=== PATIENT | female | born 1995 | race Hispanic/Latino ===

== ENCOUNTER 2024-06-01 14:58 | Emergency (ER) | payer OTHER ==
[2024-06-01 15:36] LABS: Absolute Monocytes 0.5 K/uL (0.1-1.3); Basophils % 0.2 % (0-1.3); Eosinophils % 0.2 % (0-4.4); Hematocrit 40.7 % (36.0-45.0); Hemoglobin 13.1 g/dL (12.0-15.0); Lymphocytes % 11.6 % (15.3-44.8); MCH 25.9 pg (27.0-35.0); MCHC 32.2 g/dL (32.0-36.0); MCV 80.5 fL (80-100); MPV 7.5 fL (7.6-11.3); Monocytes % 6.3 % (3.3-12.3); Neutrophils % 81.7 % (41.7-73.7); Platelets 259 thou/uL (152-406); RBC Red Blood Cell Count 5.06 M/uL (3.86-4.86); Red Cell Distribution Width 14.3 % (12.1-15.2)
[2024-06-01] MEDS ORDERED: METHYLPREDNISOLONE 125 MG INJ ONE (15:51)
[2024-06-01] MEDS ORDERED: LEVALBUTEROL 1.25 MG/3 ML NEB ONE (15:51)
[2024-06-01] MEDS ORDERED: IPRATROPIUM BROM 0.5MG/2.5ML ONE (15:51)
[2024-06-01] MEDS ORDERED: CEFTRIAXONE 1000 MG/VIAL ONE (15:51)
[2024-06-01] MEDS ORDERED: NA CHLORIDE 0.9% 2,000 ML ONE (15:52)
[2024-06-01] MEDS ORDERED: AZITHROMYCIN 250 MG TAB ONE (15:52)
--- NOTE | 2024-06-01 16:02 | RAD REPORT ---
EXAM: Chest Pa And Lat (2 Views) HISTORY: COUGH COMPARISON: None. FINDINGS: LUNGS/PLEURA: The lungs are clear. No pleural effusions or pneumothorax. No pulmonary edema. MEDIASTINUM: The mediastinal silhouette is within normal limits. CARDIAC: The cardiac silhouette is within normal limits. UPPER ABDOMEN: No significant abnormality. BONES: No acute fracture. LINES/TUBES/OTHER: N/A IMPRESSION: No evidence of acute cardiopulmonary disease.
[2024-06-01 16:08] LABS: Albumin 3.3 g/dL (3.4-5.0); Albumin/Globulin Ratio 0.8 (1.1-1.8); Anion Gap 10.6 mEq/L (5.0-15.0); Bilirubin Total 0.5 mg/dL (0.2-1.0); Globulin 4.1 g/dL (2.3-3.5); Potassium 3.6 mEq/L (3.5-5.1); Protein, Total 7.4 g/dL (6.4-8.2); Troponin High Sensitivity 3.5 pg/mL (<58.9)
[2024-06-01 16:20] LABS: SARS-CoV-2 Antigen CONTROL BLUE LINE VIS/BG OK; SARS-CoV-2 Antigen Rapid Res Negative (Negative)
[2024-06-01] MEDS ORDERED: ONDANSETRON 4 MG/2 ML VIAL ONE (16:31)
[2024-06-01] MEDS ORDERED: FENTANYL CITR 100 MCG/2 ML ONE (16:32)
[2024-06-01] MEDS ORDERED: FAMOTIDINE 20 MG/2 ML VIAL IV ONE (16:32)
--- NOTE | 2024-06-01 16:56 | RAD REPORT ---
Abdomen Exam Limited: 06/01/2024 4:27 PM CLINICAL HISTORY: ABD PAIN STUDY: Limited right upper quadrant ultrasound of abdomen. COMPARISON: None. FINDINGS: Liver: Limited evaluation but grossly unremarkable. Bile ducts: Mild extrahepatic biliary duct dilatation. Common bile duct measures 6 mm. Gallbladder: Cholelithiasis with stone impacted in the region of the gallbladder neck. No sonographic Hassan sign. No gallbladder wall thickening or pericholecystic fluid. IMPRESSION: Cholelithiasis with stone impacted at the gallbladder neck but no sonographic evidence of acute elisabet cystitis. Very early or mild acute cholecystitis difficult to exclude. The common bile duct was measured at 6 mm which is mildly dilated. MRCP could exclude choledocholithiasis if clinically indica kailey.
--- NOTE | 2024-06-01 17:32 | ER ---
Nurse's Notes [facility] Name: Analisa Haas Age: 28 yrs Sex: Female : 1995 Arrival Date: 06/01/2024 Time: 14:58 Bed 6 Private MD: Diagnosis: Acute upper respiratory infection, unspecified;Weakness;Syncope Near;Tobacco abuse counseling;Tobacco use;Other cholelithiasis without obstruction-IN NECK, CBD 6MM Presentation: 06/01 15:03 Chief complaint: EMS states: flu symptoms x 2-3 days ago, fever yesterday but none aa5 today, pt was found in her car with face flushed and diaphoretic today. 15:03 Acuity: CHRISTOPHER 3 aa5 15:03 Method Of Arrival: EMS: [facility] aa5 15:03 Coronavirus screen: cough unrelated to allergies. Ebola Screen: Patient denies travel aa5 to an Ebola-affected area in the 21 days before illness onset. Initial Sepsis Screen: Does the patient meet any 2 criteria? HR > 90 bpm. Does the patient have a suspected source of infection? No. Patient's initial sepsis screen is negative. Risk Assessment: Do you want to hurt yourself or someone else? Patient reports no desire to harm self or others. Onset of symptoms was May 2024. 15:03 Care prior to arrival: Medication(s) given: Benadryl 12.5mg ad Zofran 4mg IV initiated. aa5 20 GA, in the left antecubital area. Historical: - Allergies: 15:05 PENICILLINS; aa5 15:05 Bactrim; aa5 15:05 Ciprofloxacin; aa5 - PMHx: 15:05 Asthma; RA; Possible Lupus; PCOS; Sjogren's syndrome; aa5 - Immunization history:: Adult Immunizations up to date. - Infectious Disease History:: Denies. - Social history:: Smoking status: Reported history of juuling and/or vaping. - Family history:: not pertinent. Screenin:12 [facility] ED Fall Risk Assessment (Adult) History of falling in the last 3 months, aa5 including since admission No falls in past 3 months (0 pts) Confusion or Disorientation No (0 pts) Intoxicated or Sedated No (0 pts) Impaired Gait No (0 pts) Mobility Assist Device Used No (0 pt) Altered Elimination No (0 pt) Score/Fall Risk Level 0 - 2 = Low Risk Oriented to surroundings, Maintained a safe environment, Educated pt \T\ family on fall prevention, incl call for assistance when getting out of bed. Abuse screen: Denies threats or abuse. Nutritional screening: No deficits noted. Tuberculosis screening: No symptoms or risk factors identified. Assessment: 15:03 General: Appears uncomfortable, Behavior is calm, cooperative. Pain: Complains of pain aa5 in epigastric area and right upper quadrant Pain currently is 7 out of 10 on a pain scale. Neuro: Level of Consciousness is awake, alert, obeys commands, Oriented to person, place, time, situation, Reports dizziness, and generalized weakness . Cardiovascular: Heart tones S1 S2 present Rhythm is regular. Respiratory: Reports cough Airway is patent Respiratory effort is even, unlabored, Respiratory pattern is regular, symmetrical. GI: Abdomen is round non-distended, Bowel sounds present X 4 quads. Abd is soft and non tender X 4 quads. Patient currently denies diarrhea, nausea. : No signs and/or symptoms were reported regarding the genitourinary system. EENT: No signs and/or symptoms were reported regarding the EENT system. Derm: Skin is pink, warm \T\ dry. face and neck are flushed. Musculoskeletal: Range of motion: intact in all extremities. 15:48 Reassessment: lab notified to add on troponin. iw 16:02 Reassessment: Patient is alert, oriented x 3, equal unlabored respirations, skin aa5 warm/dry/pink. 16:15 Reassessment: Patient is alert, oriented x 3, equal unlabored respirations, skin aa5 warm/dry/pink. 16:15 General: Appears comfortable, Behavior is calm, cooperative. aa5 16:37 Reassessment: US at bedside . aa5 18:09 Reassessment: Patient is alert, oriented x 3, equal unlabored respirations, skin aa5 warm/dry/pink. General: Appears comfortable, Behavior is calm, cooperative. Vital Signs: 15:03 BP 146 / 84; Pulse 93; Resp 20 S; Temp 98.6(O); Pulse Ox 100% on R/A; Weight 91.63 kg aa5 (R); Height 5 ft. 2 in. (R); 16:15 BP 131 / 79; Pulse 98; Resp 20 S; Temp 98.4(O); Pulse Ox 99% on Nebulizer Mask; aa5 17:45 BP 135 / 76; Pulse 94; Resp 18 S; Pulse Ox 100% on R/A; aa5 15:03 Body Mass Index 36.95 (91.63 kg, 157.48 cm) aa5 ED Course: 15:03 Patient arrived in ED. aa5 15:03 Arm band placed on. aa5 15:03 Patient has correct armband on for positive identification. Placed in gown. Bed in low aa5 position. Call light in reach. Side rails up X 1. Pulse ox on. NIBP on. 15:05 Brandon Guerrier MD is Attending Physician. [facility] 15:08 Triage completed. aa5 15:13 Kenya Peoples, RN is Primary Nurse. aa5 15:29 Initial lab(s) drawn, by me, sent to lab. First set of blood cultures drawn by me. aa5 15:31 Inserted saline lock: 22 gauge in right forearm, using aseptic technique. Flushed with aa5 10 mL NS. 15:37 SARS RAPID Sent. iw 15:37 Flu Sent. iw 15:37 Strep Sent. iw 15:45 Second set of blood cultures drawn. aa5 16:00 Chest Pa And Lat (2 Views) XRAY In Process Unspecified. EDMS 16:48 US Abdomen Limited In Process Unspecified. EDMS 17:32 Jeff Chen MD is Referral Physician. [facility] 18:05 No provider procedures requiring assistance completed. IV discontinued, intact, aa5 bleeding controlled, No redness/swelling at site. Pressure dressing applied. Administered Medications: 15:40 Drug: NS 0.9% IV (30 ml/kg) 30 ml/kg IV at bolus once; Sepsis Protocol; to be given as aa5 a bolus over 90 minutes Route: IV; Rate: bolus; Site: left antecubital; 17:10 Follow up: IV Status: Completed infusion; IV Intake: 2748ml aa5 16:00 Drug: Rocephin IV 1 grams IV at per protocol once; Given slow IV push per pharmacy aa5 instructions Route: IV; Rate: per protocol; Site: left antecubital; 16:03 Follow up: Response: No adverse reaction; IV Status: Completed infusion aa5 16:02 Drug: Levalbuterol Inhalation 1.25 mg Inhalation once Route: Inhalation; aa5 16:02 Drug: Ipratropium Inhalation Aerosol 0.5 mg Inhalation once Route: Inhalation; aa5 16:02 Drug: MethylPrednisoLONE IVP 125 mg IVP once Route: IVP; Site: left antecubital; aa5 16:37 Follow up: Response: No adverse reaction aa5 16:03 Drug: AZITHromycin PO 500 mg PO once Route: PO; aa5 16:37 Follow up: Response: No adverse reaction aa5 16:37 Drug: fentaNYL (PF) IVP 50 mcg IVP once Route: IVP; Site: left antecubital; aa5 17:00 Follow up: Response: No adverse reaction aa5 16:37 Drug: Ondansetron IVP 4 mg IVP once; over 2 minutes Route: IVP; Site: left antecubital; aa5 17:00 Follow up: Response: No adverse reaction aa5 16:37 Drug: Famotidine IVP 20 mg IVP once; dilute with 10 mL 0.9% NaCl; give over 2 minutes aa5 Route: IVP; Site: left antecubital; 17:00 Follow up: Response: No adverse reaction aa5 Medication: 15:12 VIS not applicable for this client. aa5 Intake: 17:10 IV: 2748ml; Total: 2748ml. aa5 Outcome: 17:32 Discharge ordered by . reg 18:09 Discharged to home ambulatory, with friend, aa5 18:09 Condition: stable 18:09 Discharge instructions given to patient, Instructed on discharge instructions, follow up and referral plans. medication usage, Demonstrated understanding of instructions, follow-up care, medications, Prescriptions given X 4, 18:11 Patient left the ED. aa5 Signatures: Dispatcher [employer] EDAZ Brandon Guerrier MD MD cha Williams, Irene, RN RN iw Calderon, Audri, RN RN aa5 Corrections: (The following items were deleted from the chart) 19:13 15:40 BP 131 / 79; Pulse 98bpm; Resp 20bpm; Spontaneous; Pulse Ox 99% Nebulizer Mask; aa5 Temp 98.4F Oral; aa5
--- NOTE | 2024-06-01 17:33 | EDPHYS ---
Physician Documentation [facility] Name: nAalisa Haas Age: 28 yrs Sex: Female : 1995 Arrival Date: 06/01/2024 Time: 14:58 Bed 6 Private MD: ED Physician Brandon Guerrier HPI: 06/01 15:31 This 28 yrs old Female presents to ER via EMS with complaints of Cough, General reg Weakness, Dizziness. 15:31 The patient or guardian reports cough, flu symptoms, arthralgias, low-grade fever, reg myalgias, no appetite. Onset: The symptoms/episode began/occurred 3 day(s) ago. Severity of symptoms: At their worst the symptoms were moderate, in the emergency department the symptoms have improved. Modifying factors: The symptoms are alleviated by cool environment, the symptoms are aggravated by exertion. Associated signs and symptoms: The patient has no apparent associated signs or symptoms. The patient has not experienced similar symptoms in the past. COUGH , WEAKNESS, DIZZY. Historical: - Allergies: 15:05 PENICILLINS; aa5 15:05 Bactrim; aa5 15:05 Ciprofloxacin; aa5 - PMHx: 15:05 Asthma; RA; Possible Lupus; PCOS; Sjogren's syndrome; aa5 - Immunization history:: Adult Immunizations up to date. - Infectious Disease History:: Denies. - Social history:: Smoking status: Reported history of juuling and/or vaping. - Family history:: not pertinent. ROS: 15:31 Constitutional: Negative for fever, chills, and weight loss, Eyes: Negative for injury, reg pain, redness, and discharge, ENT: Negative for injury, pain, and discharge, Neck: Negative for injury, pain, and swelling, Cardiovascular: Negative for chest pain, palpitations, and edema, Abdomen/GI: Negative for abdominal pain, nausea, vomiting, diarrhea, and constipation, Back: Negative for injury and pain, : Negative for injury, bleeding, discharge, and swelling, MS/Extremity: Negative for injury and deformity, Skin: Negative for injury, rash, and discoloration, Psych: Negative for depression, anxiety, suicide ideation, homicidal ideation, and hallucinations, Allergy/Immunology: Negative for hives, rash, and allergies, Endocrine: Negative for neck swelling, polydipsia, polyuria, polyphagia, and marked weight changes, Hematologic/Lymphatic: Negative for swollen nodes, abnormal bleeding, and unusual bruising, 15:31 Respiratory: Positive for cough, with no reported sputum, 15:31 Neuro: Positive for near syncope, weakness, Exam: 15:31 Constitutional: This is a well developed, well nourished patient who is awake, alert, reg and in no acute distress. Head/Face: Normocephalic, atraumatic. Eyes: Pupils equal round and reactive to light, extra-ocular motions intact. Lids and lashes normal. Conjunctiva and sclera are non-icteric and not injected. Cornea within normal limits. Periorbital areas with no swelling, redness, or edema. ENT: Nares patent. No nasal discharge, no septal abnormalities noted. Tympanic membranes are normal and external auditory canals are clear. Oropharynx with no redness, swelling, or masses, exudates, or evidence of obstruction, uvula midline. Mucous membranes moist. Neck: Trachea midline, no thyromegaly or masses palpated, and no cervical lymphadenopathy. Supple, full range of motion without nuchal rigidity, or vertebral point tenderness. No Meningismus. Chest/axilla: Normal chest wall appearance and motion. Nontender with no deformity. No lesions are appreciated. Cardiovascular: Regular rate and rhythm with a normal S1 and S2. No gallops, murmurs, or rubs. Normal PMI, no JVD. No pulse deficits. Respiratory: Lungs have equal breath sounds bilaterally, clear to auscultation and percussion. No rales, rhonchi or wheezes noted. No increased work of breathing, no retractions or nasal flaring. Abdomen/GI: Soft, non-tender, with normal bowel sounds. No distension or tympany. No guarding or rebound. No evidence of tenderness throughout. Back: No spinal tenderness. No costovertebral tenderness. Full range of motion. Pelvic Exam: Normal external genitalia. Speculum exam with closed cervical os, no discharge or bleeding noted. Bimanual exam with normal adnexa, no adnexal or cervical motion tenderness. Normal uterus. Skin: Warm, dry with normal turgor. Normal color with no rashes, no lesions, and no evidence of cellulitis. MS/ Extremity: Pulses equal, no cyanosis. Neurovascular intact. Full, normal range of motion., bilateral aka Neuro: Awake and alert, GCS 15, oriented to person, place, time, and situation. Cranial nerves II-XII grossly intact. Motor strength 5/5 in all extremities. Sensory grossly intact. Cerebellar exam normal. Normal gait. Psych: Awake, alert, with orientation to person, place and time. Behavior, mood, and affect are within normal limits. 15:31 Musculoskeletal/extremity: Circulation is intact in all extremities. Sensation intact. Compartment Syndrome exam of affected extremity: is normal. no pain, no numbness, no tingling, no sensation deficit, no palor, no weak pulses, Weight bearing: able to fully bear weight, DVT Exam: no pain, no swelling, no tenderness, negative Homans' sign noted on exam, no appreciated bluish discoloration, no erythema, no increased warmth, 15:31 Neuro: Exam negative for acute changes, Orientation: is normal, Mentation: is normal, Memory: is normal, appropriate for stated age, no acute changes, Cranial nerves: grossly normal, is grossly normal based on the patient's age, no acute changes, Cerebellar function: is grossly normal, Motor: is normal, Gait: not tested. seizure activity, is not displayed by the patient, 15:37 ECG was reviewed by the Attending Physician. [facility] 17:43 ECG was reviewed by the Attending Physician. [facility] Vital Signs: 15:03 BP 146 / 84; Pulse 93; Resp 20 S; Temp 98.6(O); Pulse Ox 100% on R/A; Weight 91.63 kg aa5 (R); Height 5 ft. 2 in. (R); 16:15 BP 131 / 79; Pulse 98; Resp 20 S; Temp 98.4(O); Pulse Ox 99% on Nebulizer Mask; aa5 17:45 BP 135 / 76; Pulse 94; Resp 18 S; Pulse Ox 100% on R/A; aa5 15:03 Body Mass Index 36.95 (91.63 kg, 157.48 cm) aa5 MDM: 15:05 Medical Screening Exam initiated [facility] 15:36 Differential Diagnosis: Obstructed Airway Bronchitis Influenza Upper Respiratory reg Infection Sinusitis Pharyngitis Otitis Media Asthma Exacerbation Viral Syndrome Pneumonia. Data reviewed: vital signs, nurses notes, lab test result(s), EKG, radiologic studies, CT scan, plain films. Consideration of Admission/Observation Escalation of care including admission/observation considered. I considered the following discharge prescriptions or medication management in the emergency department Medications were administered in the Emergency Department. See MAR. Independent interpretation of the following test(s) in the Emergency Department EKG: See my EKG interpretation above. Test considered but Not performed: CT: NO CT CHEST. 06/01 15:10 Order name: CBC with Diff; Complete Time: 15:39 [facility] 06/01 15:10 Order name: Comprehensive Metabolic Panel; Complete Time: 16:26 [facility] 06/01 15:10 Order name: Blood Culture Adult (2) [facility] 06/01 15:10 Order name: Lactate w/ 2H reflex if indic.; Complete Time: 16:26 [facility] 06/01 15:10 Order name: Strep [facility] 06/01 15:10 Order name: Flu; Complete Time: 16:26 [facility] 06/01 15:10 Order name: SARS RAPID; Complete Time: 16:26 [facility] 06/01 15:51 Order name: Troponin High Sensitivity; Complete Time: 16:26 [facility] 06/01 16:23 Order name: Throat Culture [facility] 06/01 16:27 Order name: Lipase; Complete Time: 16:49 [facility] 06/01 15:10 Order name: Chest Pa And Lat (2 Views) XRAY; Complete Time: 16:26 [facility] 06/01 16:27 Order name: US Abdomen Limited; Complete Time: 17:22 [facility] 06/01 15:37 Order name: EKG; Complete Time: 15:37 [facility] 06/01 15:37 Order name: EKG - Nurse/Tech; Complete Time: 15:47 [facility] EC:43 Rate is 93 beats/min. Rhythm is regular. QRS Success is Normal. MO interval is normal. QRS reg interval is normal. QT interval is normal. No Q waves. T waves are Normal. No ST changes noted. Clinical impression: Normal ECG and No evidence of ischemia. Interpreted by me. Reviewed by me. Administered Medications: 15:40 Drug: NS 0.9% IV (30 ml/kg) 30 ml/kg IV at bolus once; Sepsis Protocol; to be given as aa5 a bolus over 90 minutes Route: IV; Rate: bolus; Site: left antecubital; 17:10 Follow up: IV Status: Completed infusion; IV Intake: 2748ml aa5 16:00 Drug: Rocephin IV 1 grams IV at per protocol once; Given slow IV push per pharmacy aa5 instructions Route: IV; Rate: per protocol; Site: left antecubital; 16:03 Follow up: Response: No adverse reaction; IV Status: Completed infusion aa5 16:02 Drug: Levalbuterol Inhalation 1.25 mg Inhalation once Route: Inhalation; aa5 16:02 Drug: Ipratropium Inhalation Aerosol 0.5 mg Inhalation once Route: Inhalation; aa5 16:02 Drug: MethylPrednisoLONE IVP 125 mg IVP once Route: IVP; Site: left antecubital; aa5 16:37 Follow up: Response: No adverse reaction aa5 16:03 Drug: AZITHromycin PO 500 mg PO once Route: PO; aa5 16:37 Follow up: Response: No adverse reaction aa5 16:37 Drug: fentaNYL (PF) IVP 50 mcg IVP once Route: IVP; Site: left antecubital; aa5 17:00 Follow up: Response: No adverse reaction aa5 16:37 Drug: Ondansetron IVP 4 mg IVP once; over 2 minutes Route: IVP; Site: left antecubital; aa5 17:00 Follow up: Response: No adverse reaction aa5 16:37 Drug: Famotidine IVP 20 mg IVP once; dilute with 10 mL 0.9% NaCl; give over 2 minutes aa5 Route: IVP; Site: left antecubital; 17:00 Follow up: Response: No adverse reaction aa5 Disposition Summary: 06/01/24 17:32 Discharge Ordered Notes: Location: Home reg Problem: new reg Symptoms: have improved reg Condition: Stable reg Diagnosis - Acute upper respiratory infection, unspecified reg - Weakness reg - Syncope Near reg - Tobacco abuse counseling reg - Tobacco use reg - Other cholelithiasis without obstruction - IN NECK, CBD 6MM reg Followup: reg - With: Private Physician - When: 2 - 3 days - Reason: Recheck today's complaints, Continuance of care, Re-evaluation by your physician Followup: reg - With: Jeff Chen MD - When: 2 - 3 days - Reason: Recheck today's complaints, Re-evaluation by your physician Discharge Instructions: - Discharge Summary Sheet reg - Near-Syncope reg - Steps to Quit Smoking reg - Health Risks of Smoking reg - Upper Respiratory Infection, Adult reg - Weakness reg - Cool Mist Vaporizer reg - Cholelithiasis reg - Cholelithiasis, [id number] reg - Upper Respiratory Infection, Adult, [id number] reg - Steps to Quit Smoking, [id number] reg - Weakness, [id number] reg - Cough, Adult [facility] Forms: - Medication Reconciliation Form reg - Antibiotic Education reg - Prescription Opioid Use reg - Patient Portal Instructions reg - Leadership Thank You Letter [facility] Prescriptions: - albuterol sulfate 90 mcg/actuation Inhalation HFA Aerosol Inhaler - inhale 2 inhalation INHALATION route every 4 to 6 hours as needed for shortness reg of breath or wheezing; 1 unit; Refills: 0, Product Selection Permitted - cefdinir 300 mg Oral capsule - take 1 capsule ORAL route 2 times per day; 14 capsule; Refills: 0, Product reg Selection Permitted - Pepcid 20 mg Oral tablet - take 1 tablet ORAL route every 12 hours for 21 days; 42 tablet; Refills: 0, reg Product Selection Permitted - dicyclomine 20 mg Oral tablet - take 1 tablet ORAL route 4 times per day; 28 tablet; Refills: 0, Product reg Selection Permitted Signatures: Dispatcher [employer] EDBrandon Coy MD MD cha Calderon, Audri, RN RN aa5 Corrections: (The following items were deleted from the chart) 15:10 15:10 CBC+H.LAB.BRZ ordered. EDMS EDMS 15:10 15:10 COMPREHENSIVE METABOLIC PANEL+C.LAB.BRZ ordered. EDMS EDMS 15:10 15:10 BLOOD CULTURE*+BA.LAB.BRZ ordered. EDMS EDMS 15:10 15:10 LACTATE+C.LAB.BRZ ordered. EDMS EDMS 15:10 15:10 Group A Streptococcus Rapid Sc+BA.LAB.BRZ ordered. EDMS EDMS 15:10 15:10 Influenza Screen (A \T\ B)+BA.LAB.BRZ ordered. EDMS EDMS 15:10 15:10 SARS-COV-2 Antigen Rapid+I.LAB.BRZ ordered. EDMS EDMS 15:10 15:10 Chest Pa And Lat (2 Views)+RAD.RAD.BRZ ordered. EDMS EDMS 15:52 15:37 Troponin High Sensitivity+C.LAB.BRZ ordered. EDMS EDMS 16:28 16:28 LIPASE+C.LAB.BRZ ordered. EDMS EDMS
[2024-06-01 18:22] VITALS: BP 146/84; TEMP 98.6; O2SAT 100
--- NOTE | 2024-06-03 11:10 | EKG ---
Test Date: 2024-06-01 Test Time: 15:45:50 Business Department Chair: AM MEASUREMENT RESULTS: Intervals: Rate: 93 SC: 148 QRSD: 76 QT: 374 QTc: 465 [place]: P: 39 SC: 148 QRS: 17 T: 18 INTERPRETIVE STATEMENTS: Normal sinus rhythm Minimal voltage criteria for LVH, may be normal variant Borderline ECG No previous ECG available for comparison Electronically Signed On 06-03-24 11:07:29 [employer] by Derek Cullen
== END 2024-06-01 18:11 | disposition home or self-care (01) ==
LOC: ER 14:58 → EDBD 14:58 → ER 18:11
DX: J06.9 Acute upper respiratory infection, unspecified (principal); K80.80 Other cholelithiasis without obstruction; R53.1 Weakness; R55 Syncope and collapse; Z71.6 Tobacco abuse counseling; Z72.0 Tobacco use; Z11.52 Encounter for screening for COVID-19
CPT/HCPCS: 96365; 93005; 87040 ×2; 87070; 85025; 36415; 87081; 83605; 84484; 83690; 80053; 87804 ×2; 71046; 76705; 96375; 99285; 87811; J7614; J7644; J3010; J2919; J2405; J7030; J0696